=== PATIENT | female | born 1965 | race Caucasian/White ===

== ENCOUNTER 2016-07-15 05:03 | Inpatient (IN) | payer SELFPAY ==
[~2016-07-15] VITALS: Ht 157.5 cm; Wt 56.4 kg
[2016-07-15 05:57] VITALS: BP 145/80; PULSE 100; RESP 20; TEMP 98.4; O2SAT 97
[2016-07-15 06:00] VITALS: BP 135/69; PULSE 65; RESP 18; TEMP 98; O2SAT 95
[2016-07-15] MEDS ORDERED: diphenhydrAMINE HCL 50 MG CAP - HS PRN PO (06:15)
[2016-07-15] MEDS ORDERED: MAGNESIUM HYDROXIDE SUSP 30 ML CUP PO PRN (06:15)
[2016-07-15] MEDS ORDERED: ACETAMINOPHEN 325 MG TAB PO PRN ×2 (06:15→14:00)
[2016-07-15] MEDS ORDERED: ALUMINUM/MAGNESIUM/SIMETH 30 ML CUP PO PRN (06:15)
[2016-07-15] MEDS ORDERED: hydrOXYzine HCL 50 MG TAB PO PRN (06:15)
[2016-07-15] MEDS ORDERED: diphenhydrAMINE HCL 50 MG/ML VIAL - HS PRN IM (06:15)
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
== END 2016-07-15 14:40 | disposition home or self-care (01) | DRG 882 ==
LOC: H260 05:55
PROVIDERS: ADMIT Psychiatry & Neurology Psychiatry; ATTEND Psychiatry & Neurology Psychiatry
DX: F43.25 Adjustment disorder with mixed disturbance of emotions and conduct (principal); F60.3 Borderline personality disorder; Z91.040 Latex allergy status; Z88.0 Allergy status to penicillin; Z91.013 Allergy to seafood